=== PATIENT | female | born 1935 | race Caucasian/White ===

== ENCOUNTER 2023-11-22 14:15 | Emergency (ER) | payer MEDICARE ==
[~2023-11-22] VITALS: Ht 172.7 cm; Wt 81.8 kg
[2023-11-22 14:21] VITALS: TEMP 97.1
[2023-11-22 16:07] VITALS: BP 111/64; PULSE 66
== END 2023-11-22 16:07 | disposition home or self-care (01) ==
LOC: COL.ER 14:15
DX: M25.552 Pain in left hip (principal); G89.29 Other chronic pain